=== PATIENT | male | born 1950 | race Caucasian/White ===

== ENCOUNTER → 2018-10-17 09:49 | Outpatient (CLI) | payer MEDICARE ==
--- NOTE | 2018-10-27 16:41 | ST ---
PATIENT:STEVE ARNOLD MEDICAL RECORD: [id number] SEX: M LOCATION:[facility] ORDER #: ADMISSION DATE: 10/17/18 AGE OF PATIENT: 68 REFERRING PHYSICIAN: INTERPRETING PHYSICIAN: BALBIR ZHAO MD DATE OF SERVICE: 10/17/2018 Exercise Stress test. INDICATION: Abnormal cardiac CT. He was exercised on Standard Stanislaw protocol for 10 minutes achieving greater than 85% max target heart rate response with no EKG changes, no dysrhythmias, no anginal chest discomfort. Negative for inducible ischemia at adequate cardiac workload. TRANSINT:[id number] Voice Confirmation ID: [id number] DOCUMENT ID: [id number] BALBIR ZHAO MD at 1641 CC: [id number] DICTATION DATE: 10/18/18 1631 ARTIFICIAL STONE APPLICATOR: 10/19/18 0510 DEP CLI 10/17/[address] [id number]
== END | disposition home or self-care (01) ==
LOC: D.HCCARDIO 09:49
PROVIDERS: ATTEND Internal Medicine Interventional Cardiology
DX: R93.1 Abnormal findings on diagnostic imaging of heart and coronary circulation (principal)

== ENCOUNTER 2019-06-28 05:18 | Day surgery (SDC) | payer MEDICARE ==
[2019-06-27 14:53] LABS: BASOPHILS 0.7 % (0-2); EOSINOPHILS 3.3 % (0-7); HEMATOCRIT 46.7 % (42.0-54.0); HEMOGLOBIN 16.6 g/dL (13.5-17.5); IMMATURE GRANULOCYTES 0.3 % (0-5); MCH 33.8 pg (26.0-34.0); MCHC 35.5 g/dL (31.0-37.0); MCV 95.1 fL (80.0-100.0); MEAN PLATELET VOLUME 10.9 fL (7.4-10.4); MONOCYTES 11.8 % (2-11); NEUTROPHILS 64.9 % (40-80); PLATELET COUNT 160 10x3/uL (130-400); RBC 4.91 10x6/uL (4.20-6.10)
[2019-06-27 15:20] LABS: ANION GAP 8.8 mmol/L (8-16); BILIRUBIN - TOTAL 0.44 mg/dL (0.2-1.3); CALCIUM 8.7 mg/dL (8.5-10.1); CARBON DIOXIDE 34.1 mmol/L (21.0-32.0); CREATININE - SERUM 1.1 mg/dL (0.6-1.3); POTASSIUM - SERUM 3.9 mmol/L (3.5-5.1); PROTEIN - SERUM 7.2 g/dL (6.4-8.2)
[~2019-06-28] VITALS: Ht 170.2 cm; Wt 104.3 kg
--- NOTE | ~2019-06-28 | OP ---
PATIENT NAME: STEVE ARNOLD MEDICAL RECORD: [id number] :48 LOCATION:[facility] ADMISSION DATE: SURGEON: MANUEL PATRICIA MD DATE OF OPERATION: 06/28/2019 PREOPERATIVE DIAGNOSES: 1. Ventral hernia. 2. Hypertension. POSTOPERATIVE DIAGNOSES: 1. Ventral hernia. 2. Hypertension. PROCEDURE: Ventral hernia repair with 4.[address] mesh. SURGEON: Manuel Patricia MD REPORT OF PROCEDURE: The patient's abdomen was prepped and draped in sterile fashion. A semicircular incision was made on the inferior aspect of the umbilicus. Electrocautery was used to dissect through the subcutaneous tissues. Just inferior to the umbilicus, there was a hernia defect present with a hernia sac. As we dissect this hernia sac, we were able to see that it was touching the inferior aspect of the umbilicus. We went ahead and elevated the umbilicus to clear off the fascia and at this point we were able to take down the hernia sac to the fascial edges. The fascial defect was right about 2 cm in greatest diameter. We cleared off the undersurface of the fascia and then the fatty tissue from the anterior aspect of the fascia in all directions. A 4.[address] mesh was inserted in an underlay fashion and sutured down on all 4 sides using interrupted 0 Prolenes. The fascia was then closed transversely with running 0 Vicryl. We irrigated out the wound with normal saline. The umbilicus was tacked back down to the fascia using an interrupted 3-0 Vicryl and the subcutaneous tissues were reapproximated with multiple interrupted 3-0 Vicryls. The skin was infused with 10 mL of 0.25% Marcaine plain and then closed with running subcutaneous 5-0 Monocryl. COMPLICATIONS: None. CONDITION: Stable. ANESTHESIA: General endotracheal and local. BLOOD LOSS: Minimal. TRANSINT:[id number] Voice Confirmation ID: [id number] DOCUMENT ID: [id number] MANUEL PATRICIA MD CC: [id number] CARLTON MD [id number] DICTATION DATE: 06/28/19907 SKI PRODUCTION SUPERVISOR: 06/28/19 1324 [address] [facility] [address] [place] [address]
[~2019-06-28 05:18] MED LIST: ALL DAY ALLERGY PO; BAYER CHEWABLE81 MG PO; BC POWDER PO; CENTRUM MEN'S1 EACH PO; CHLORTHALID PO; COZAAR100 MG PO; FLUTICASONE PRO16 GM NASAL; LIPITOR40 MG PO; SLEEP AID25 M1 PO; SUPER VITAMIN B COMP PO; TYLENOL ARTHRI650 MG PO; [UNRECOGNIZED DRUG - OTHER] PO; [UNRECOGNIZED DRUG - OTHER] PO
[2019-06-28] MEDS ORDERED: ADVIL200 MG PO (05:51)
[2019-06-28] MEDS ORDERED: BENADRYL50 MG PO (05:53)
[2019-06-28 06:09] VITALS: BP 135/75; Ht 170.2 cm; Wt 104.3 kg
[2019-06-28] MEDS ORDERED: HYDROCODON-ACE1 EA10 PO (09:04)
--- NOTE | 2019-06-28 10:46 | NUR ---
1046 IV DC'D. CATHETER INTACT. NO BLEEDING AT SITE. BANDAID APPLIED.
== END 2019-06-28 11:04 | disposition home or self-care (01) ==
LOC: D.OPS 05:18 → D.PAN 07:30 → D.OPS 11:04
PROVIDERS: Anesthesiology; ATTEND Surgery
DX: K43.9 Ventral hernia without obstruction or gangrene (principal); I10 Essential (primary) hypertension